=== PATIENT | female | born 1945 | race Caucasian/White ===

== ENCOUNTER → 2017-04-24 | Outpatient (CLI) | payer OTHER ==
[~2017-04-24] MED LIST: ADVAIR HFA 230M12 GM INH; ALBUTEROL2.5 MG/0.5 INH; ASPIR 8181 M1 PO; CALCIUM 500 +1 EAC5 PO; COMBIVENT INH; GAVISCON LIQUI355 ML PO; IBUPROFEN 200200 M1 PO; LISINOPRIL10 MG PO; LOPRESSOR25 PO; METFORMIN HCL500 MG PO; PERCOCET PO; ROBITUSSIN100 MG/53 PO; TRAMADOL 50 MG50 MG PO; VENTOLIN HFA 1818 GM INH; ZANTAC 150MG T150 MG PO
--- NOTE | ~2017-04-24 | CNG ---
[facility] [place] [address] CYTO-NONGYN REPORT PROCEDURE Name: SONNY MCLEOD Room #: [facility]..#: [id number] Admission: 04/24/17 Date of : 49 Discharge: Report #: [id number] Path Case #: [id number] CYTOPATHOLOGY REPORT COLLECTION DATE: 04/24/2017 RECEIVED DATE: 04/24/2017 SUBMITTING PHYS: Dr. Donovan Wagner OTHER PHYS: Dr. Owen Ponce CLINICAL HISTORY: Lung Mass SPECIMEN(S) RECEIVED: A.Bronchial brushing, RUL B.Bronchial brush rinse C.Bronchoalveolar lavage * * * * * * * * * * * * FINAL DIAGNOSIS: A. Lung, right upper lobe, bronchial brushing: ATYPICAL SQUAMOID EPITHELIAL CELLS IDENTIFIED. Reactive bronchial epithelial cells present. Marked air drying artifact obscuring interpretation. B. Lung, right upper lobe, bronchial brush rinse: ATYPICAL SQUAMOID EPITHELIAL CELLS IDENTIFIED. Reactive bronchial epithelial cells present. C. Lung, bronchoalveolar lavage: - No malignant cells identified. - Bronchial epithelial cells present in a background of debris. COMMENT: The concurrent biopsy tissue, [id number], showed atypical metaplastic squamous epithelium along with ulceration, granulation tissue and necrosis. The cells identified on the brushing smears and the brush rinse resemble the squamous cells identified on the biopsy tissue. Definite features to support a malignancy or exclude one are not identified. Please see separate report for details. Co-review: Gregoria Quan MD (IUV:mml; 04/25/2017) PATHOLOGIST: Alba Shearer M.D. REPORT ELECTRONICALLY SIGNED BY: Alba Shearer M.D. DATE/TIME: 04/27/2017 08:53 * * * * * * * * * * * * GROSS PATHOLOGY: A. Bronchial brushing, RUL: The specimen is labeled "Sonny Mcleod" and consists of four fixed slides. B. Bronchial brush rinse: The specimen is labeled "Sonny Mcleod [address] [address] CYTO-NONGYN REPORT PROCEDURE Name: SONNY MCLEOD Room #: [facility]#: [id number] Admission: 04/24/17 Date of : 49 Discharge: Report #: [id number] Path Case #: [id number] Marcie" and consists of a brush tip in fixative. One ThinPrep slide was prepared. C. Bronchoalveolar lavage: The specimen is submitted unfixed, labeled "Sonny Mcleod". Received by the Cytology Department is 17 mL of cloudy red fluid. One ThinPrep slide was prepared. (mm 04.24.2017) CLINIC ADMINISTRATOR(S): ADRIEN Erazo([facility]) INITIAL CPT CODE(S): A; 75067 B; 23833 C; 57846 Professional services performed by [facility] at [address] , [place] [address] Technical services performed by [facility] at [address] [place] [address]., [address], [place] [address]. [facility] [address] [place] [address], [address] [place] [address] PHONE: [phone] DIRECTOR: Charlie Webster M.D. * * * END OF REPORT * * *
--- NOTE | ~2017-04-24 | S ---
[facility] Gonzalo Llamas [address] [place] [address] SURGICAL PATH RPT PROCEDURE Name: SONNY MCLEOD Room #: [facility]..#: [id number] Admission: 04/24/17 Date of : 49 Discharge: Report #: [id number] Path Case #: [id number] PATHOLOGY REPORT COLLECTION DATE: 04/24/2017 RECEIVED DATE: 04/24/2017 SUBMITTING PHYS: Dr. Donovan Wagner OTHER PHYS: Dr. Owen Ponce SPECIMEN(S) RECEIVED: A.RUL biopsy forceps * * * * * * * * * * * * FINAL DIAGNOSIS: Lung, right upper lobe, forceps biopsy: - ATYPICAL SURFACE SQUAMOUS EPITHELIUM ASSOCIATED WITH ACUTE INFLAMMATION AND REACTIVE CHANGES. - Fragments with ulceration as well as abundant necrosis and hemorrhage. - Fragments of benign cartilage. COMMENT: Examination shows fragments of markedly reactive and atypical squamous epithelium overlying fragments of ulceration, granulation tissue, and necrosis in close association with fragments of cartilage. Benign bronchial epithelium or alveolated lung parenchyma are not identified. Features to confirm a malignant process are not identified within the squamous epithelium. The concurrent cytology ([id number]) showed a few atypical cells as well. Please refer to a separate report for details. Immunohistochemical stains are performed to identify occult or invasive tumor cells present in association with the ulcerated fragments. (Block A1) TTF-1: Reactive within the surface metaplastic squamous epithelium; no reactivity within fragments of ulceration P63: Reactive within the surface metaplastic squamous epithelium; no reactivity within fragments of ulceration Co-review: Dr. Gregoria Quan (IUV:mgr; 04/26/2017) PATHOLOGIST: Alba Shearer M.D. REPORT ELECTRONICALLY SIGNED BY: Alba Shearer M.D. DATE/TIME: 04/26/2017 16:37 * * * * * * * * * * * * [address] [address] SURGICAL PATH RPT PROCEDURE Name: SONNY MCLEOD Room #: [facility].#: [id number] Admission: 04/24/17 Date of : 49 Discharge: Report #: [id number] Path Case #: [id number] GROSS PATHOLOGY: Received in formalin labeled "Sonny Mcleod, right upper lobe biopsy forceps," are multiple distinct needle cores of lang soft tissue ranging from 0.1 to 0.6 cm in length, which are submitted entirely in cassette A1. ([facility]; 04/24/2017) CLINICAL HISTORY: Not given INITIAL CPT CODE(S): A; 72101, 52050, 13408 Professional services performed by [facility] at [address] , [place] [address] Technical services performed by [facility] at [address] [place] [address], [place] [address]. [facility] [address] [place], [place] [address] [place] [address] PHONE: [phone] DIRECTOR: Charlie Webster M.D. * * * END OF REPORT * * *
== END | disposition home or self-care (01) ==
LOC: CATH 11:03
DX: R91.8 Other nonspecific abnormal finding of lung field (principal); Z98.890 Other specified postprocedural states